=== PATIENT | female | born 1950 | race Caucasian/White ===

== ENCOUNTER 2021-09-20 10:23 | Outpatient (CLI) | payer MEDICARE | END 2021-09-20 10:24 | disposition home or self-care (01) | LOC: CSHMAMMO 10:23 | PROVIDERS: ATTEND Family Medicine | DX: Z12.31 Encounter for screening mammogram for malignant neoplasm of breast (principal) | CPT/HCPCS: 77063; 77067 ==

== ENCOUNTER 2022-09-21 10:25 | Outpatient (CLI) | payer MEDICARE | END 2022-09-21 10:26 | disposition home or self-care (01) | LOC: CSHMAMMO 10:25 | PROVIDERS: ATTEND Family Medicine | DX: Z12.31 Encounter for screening mammogram for malignant neoplasm of breast (principal) | CPT/HCPCS: 77063; 77067 ==

== ENCOUNTER 2023-10-03 14:25 | Outpatient (CLI) | payer MEDICARE | END 2023-10-03 14:26 | disposition home or self-care (01) | LOC: CSHMAMMO 14:25 | PROVIDERS: ATTEND Family Medicine | DX: Z12.31 Encounter for screening mammogram for malignant neoplasm of breast (principal) | CPT/HCPCS: 77063; 77067 ==

== ENCOUNTER 2024-10-07 14:11 | Outpatient (CLI) | payer MEDICARE | END 2024-10-07 14:12 | disposition home or self-care (01) | LOC: CSHMAMMO 14:11 | PROVIDERS: ATTEND Family Medicine | DX: Z12.31 Encounter for screening mammogram for malignant neoplasm of breast (principal) | CPT/HCPCS: 77063; 77067 ==

== ENCOUNTER 2025-10-09 11:57 | Outpatient (CLI) | payer MEDICARE | END 2025-10-09 11:58 | disposition home or self-care (01) | LOC: CSHMAMMO 11:57 | PROVIDERS: ATTEND Family Medicine | DX: Z12.31 Encounter for screening mammogram for malignant neoplasm of breast (principal) | CPT/HCPCS: 77063; 77067 ==